=== PATIENT | female | born 1985 | race Caucasian/White ===

== ENCOUNTER 2016-05-20 10:22 | Emergency (ER) | payer OTHER ==
[~2016-05-20] VITALS: Ht 165.1 cm; Wt 85.9 kg
[~2016-05-20 10:22] MED LIST: ADVIL,NUPRIN,M200 MG PO; AMOXICILLIN500 M1 PO; AUGMENTIN875 MG PO; BACTRIM,SEPT1 TABLET PO; CEPHALEXIN500 M1 PO; CIPRO500 MG PO; DOXYCYCLINE HY100 M3 PO; FLEXERIL10 MG PO; FLEXERIL5 MG PO; GARCINIA CAMBO1 EACH PO; HYDROCODON-ACE1 EAC7 PO; IBUPROFEN800 MG PO; KEFLEX500 MG PO; MACROBID100 MG PO; MOTRIN IB200 MG PO; MOTRIN600 MG PO; NAPROSYN-EC500 MG PO; NAPROSYN500 MG PO; NAPROXEN500 MG PO; NO HOME MEDS; NOHOMEMEDS; NORCO 5/3251 TABLET PO; ORAL ANALGESIC9 GM MM; PEN-VEE K,VEET500 MG PO; PEPCID20 MG PO; PREDNISONE10 M1 PO; PYRIDIUM100 MG PO; PYRIDIUM200 MG PO; TRAMADOL HCL50 MG PO; ULTRAM50 MG PO; VICODIN 5-3001 EACH PO; ZOFRAN ODT4 MG PO; ZOFRAN4 MG PO
[2016-05-20] MEDS ORDERED: PEN-VEE K,VEET500 MG PO (13:26)
[2016-05-20 13:39] VITALS: BP 137/91
== END 2016-05-20 13:40 | disposition home or self-care (01) ==
LOC: EME 10:22 → RME 10:22
DX: J02.0 Streptococcal pharyngitis (principal); S63.501A Unspecified sprain of right wrist, initial encounter; W01.0XXA Fall on same level from slipping, tripping and stumbling without subsequent striking against object, initial encounter
CPT/HCPCS: 73110; 87651 90; 99281; 99284

== ENCOUNTER 2016-07-03 05:41 | Emergency (ER) | payer OTHER ==
[~2016-07-03] VITALS: Ht 165.1 cm; Wt 89.7 kg
[2016-07-03 06:28] LABS: HEMATOCRIT 36.9 % (36.0-46.0); MCHC 33.9 G/DL (30.0-36.0); MCV 88.5 FL (83-99); MEAN PLAT.VOLUME 9.6 uM^3 (9.5-12.4); PLATELET COUNT 318 K/uL (156-360); RBC DIS.WIDTH-CV 12.6 % (11.8-14.6); RBC DIS.WIDTH-SD 39.8 % (39-53); RED BLOOD COUNT 4.17 M/uL (3.80-5.20); WHITE BLOOD COUNT 7.4 K/uL (4.1-10.2)
[2016-07-03 06:37] LABS: CHLORIDE 105 mEq/L (99-109); SODIUM 139 mEq/L (136-147)
[2016-07-03 06:39] LABS: GLUCOSE 86 mg/dL (70-99)
[2016-07-03 06:40] LABS: ANION GAP 8 MEQ/L (2-14)
[2016-07-03 06:41] LABS: TOTAL BILIRUBIN 0.3 mg/dL (0.0-1.0)
[2016-07-03 06:42] LABS: ALKALINE PHOSPHATASE 59 IU/L (3-129)
[2016-07-03 06:43] LABS: GFR ESTIMATE (CALCULATED) > 59 mL/min/
[2016-07-03 06:44] LABS: UREA NITROGEN (BUN) 11 mg/dL (9-23)
[2016-07-03 06:46] LABS: LIPASE 22 U/L (1.0-51.0)
[2016-07-03 07:48] LABS: ADD MIUA? YES; BILIRUBIN NEGATIVE; BLOOD SMALL; COLOR YELLOW ((YELLOW)); GLUCOSE (STRIP) NEGATIVE; KETONES NEGATIVE; LEUKOCYTES NEGATIVE; NITRITE NEGATIVE; PROTEIN (STRIP) NEGATIVE; SPECIFIC GRAVITY 1.012 (1.000-1.030); UROBILINOGEN 0.2 MG/DL (0.2-1.0)
[2016-07-03 07:55] LABS: INTERNAL CONTROL VALID? YES
[2016-07-03 08:02] LABS: BACTERIA 1+ /HPF; EPITHELIAL CELLS RARE /HPF; MUCUS NONE SEEN /LPF; RED BLOOD CELLS 0-5 /HPF (0-5); UCUL ADDED? NO; WHITE BLOOD CELLS 0-5 /HPF (0-5)
[2016-07-03] MEDS ORDERED: ZOFRAN ODT4 MG PO (08:18)
[2016-07-03 08:35] VITALS: BP 135/86
== END 2016-07-03 08:45 | disposition home or self-care (01) ==
LOC: EME 05:41
PROVIDERS: Emergency Medicine
DX: K52.9 Noninfective gastroenteritis and colitis, unspecified (principal); J45.909 Unspecified asthma, uncomplicated; Z87.440 Personal history of urinary (tract) infections; F17.200 Nicotine dependence, unspecified, uncomplicated
CPT/HCPCS: 80053; 81003; 83690; 84703; 85027; 99281; 99284

== ENCOUNTER 2016-07-25 12:16 | Emergency (ER) | payer OTHER ==
[~2016-07-25] VITALS: Ht 165.1 cm; Wt 87.3 kg
[2016-07-25] MEDS ORDERED: MOBIC7.5 MG PO (13:20)
[2016-07-25 13:49] VITALS: BP 124/65
== END 2016-07-25 13:51 | disposition home or self-care (01) ==
LOC: EME 12:16
DX: S46.912A Strain of unspecified muscle, fascia and tendon at shoulder and upper arm level, left arm, initial encounter (principal); X50.9XXA Other and unspecified overexertion or strenuous movements or postures, initial encounter; F17.200 Nicotine dependence, unspecified, uncomplicated
CPT/HCPCS: 73030; 99281; 99284

== ENCOUNTER 2016-07-29 10:35 | Emergency (ER) | payer OTHER ==
[~2016-07-29] VITALS: Ht 165.1 cm; Wt 86.9 kg
[~2016-07-29 10:35] MED LIST changes: +MOBIC7.5 MG PO
[2016-07-29 10:42] VITALS: BP 156/101
== END 2016-07-29 12:39 | disposition left against medical advice (07) ==
LOC: EME 10:35
DX: M25.512 Pain in left shoulder (principal); M54.2 Cervicalgia; Z53.21 Procedure and treatment not carried out due to patient leaving prior to being seen by health care provider

== ENCOUNTER 2016-08-08 02:18 | Emergency (ER) | payer OTHER ==
[~2016-08-08] VITALS: Ht 165.1 cm; Wt 86.4 kg
[2016-08-08 05:58] VITALS: BP 145/85
== END 2016-08-08 05:59 | disposition home or self-care (01) ==
LOC: EME 02:18
DX: S06.9X1A Unspecified intracranial injury with loss of consciousness of 30 minutes or less, initial encounter (principal); S16.1XXA Strain of muscle, fascia and tendon at neck level, initial encounter; V49.40XA Driver injured in collision with unspecified motor vehicles in traffic accident, initial encounter; F17.200 Nicotine dependence, unspecified, uncomplicated
CPT/HCPCS: 70450; 72125; 84702; 99281; 99284

== ENCOUNTER 2016-09-04 09:02 | Emergency (ER) | payer OTHER ==
[~2016-09-04] VITALS: Ht 165.1 cm; Wt 88.5 kg
[2016-09-04] MEDS ORDERED: PEPCID20 MG PO (12:22)
[2016-09-04] MEDS ORDERED: BENADRYL25 MG PO (12:22)
[2016-09-04 13:08] VITALS: BP 138/88
== END 2016-09-04 13:09 | disposition home or self-care (01) ==
LOC: EME 09:02
DX: T78.40XA Allergy, unspecified, initial encounter (principal); F17.200 Nicotine dependence, unspecified, uncomplicated; Z87.440 Personal history of urinary (tract) infections; Z88.6 Allergy status to analgesic agent
CPT/HCPCS: 99281; 99284; J1100

== ENCOUNTER 2016-09-20 09:48 | Emergency (ER) | payer OTHER ==
[~2016-09-20] VITALS: Ht 165.1 cm; Wt 86.5 kg
[~2016-09-20 09:48] MED LIST changes: +BENADRYL25 MG PO
[2016-09-20 11:11] LABS: ADD MIUA? YES; BILIRUBIN NEGATIVE; BLOOD LARGE; COLOR YELLOW ((YELLOW)); GLUCOSE (STRIP) NEGATIVE; KETONES NEGATIVE; LEUKOCYTES TRACE; NITRITE NEGATIVE; PROTEIN (STRIP) 100; SPECIFIC GRAVITY 1.021 (1.000-1.030); UROBILINOGEN 0.2 MG/DL (0.2-1.0)
[2016-09-20 11:43] LABS: BACTERIA RARE /HPF; CALCIUM OXALATE CRYSTALS 2+ /HPF; EPITHELIAL CELLS 2+ /HPF; MUCUS TRACE /LPF; RED BLOOD CELLS 40-50 /HPF (0-5)
[2016-09-20] MEDS ORDERED: KEFLEX500 MG PO (12:01)
[2016-09-20] MEDS ORDERED: LIDODERM 5% P1 PATCH TD (12:02)
[2016-09-20 12:23] VITALS: BP 135/94
== END 2016-09-20 12:24 | disposition home or self-care (01) ==
LOC: EME 09:48
DX: R07.81 Pleurodynia (principal); Y09 Assault by unspecified means
CPT/HCPCS: 71101; 81003; 99281; 99284

== ENCOUNTER 2016-11-12 10:09 | Emergency (ER) | payer OTHER ==
[~2016-11-12] VITALS: Ht 165.1 cm; Wt 86.2 kg
[~2016-11-12 10:09] MED LIST changes: +LIDODERM 5% P1 PATCH TD
[2016-11-12 10:23] VITALS: BP 138/81
[2016-11-12] MEDS ORDERED: MOTRIN800 MG PO (11:39)
[2016-11-12] MEDS ORDERED: FLEXERIL10 MG PO (11:39)
== END 2016-11-12 12:02 | disposition home or self-care (01) ==
LOC: EME 10:09
DX: S40.012A Contusion of left shoulder, initial encounter (principal); M62.838 Other muscle spasm; V49.10XA Passenger injured in collision with unspecified motor vehicles in nontraffic accident, initial encounter; Z88.5 Allergy status to narcotic agent
CPT/HCPCS: 73030; 99281; 99283; J1885

== ENCOUNTER 2016-12-05 01:37 | Emergency (ER) | payer SELFPAY ==
[~2016-12-05] VITALS: Ht 165.1 cm; Wt 86.4 kg
[~2016-12-05 01:37] MED LIST changes: +MOTRIN800 MG PO
[2016-12-05 02:02] LABS: ADD MIUA? YES; BILIRUBIN NEGATIVE; BLOOD SMALL; COLOR YELLOW ((YELLOW)); GLUCOSE (STRIP) NEGATIVE; KETONES NEGATIVE; LEUKOCYTES LARGE; NITRITE NEGATIVE; PROTEIN (STRIP) 30; SPECIFIC GRAVITY 1.014 (1.000-1.030); UROBILINOGEN 0.2 MG/DL (0.2-1.0)
[2016-12-05 02:18] LABS: BACTERIA 1+ /HPF; EPITHELIAL CELLS 3+ /HPF; MUCUS TRACE /LPF; RED BLOOD CELLS 0-5 /HPF (0-5); UCUL ADDED? YES
[2016-12-05 02:27] LABS: HEMATOCRIT 39.6 % (36.0-46.0); MCH 29.3 PG (29.0-34.0); MCHC 33.1 G/DL (30.0-36.0); MCV 88.6 FL (83-99); MEAN PLAT.VOLUME 9.6 uM^3 (9.5-12.4); PLATELET COUNT 303 K/uL (156-360); RBC DIS.WIDTH-CV 12.6 % (11.8-14.6); RBC DIS.WIDTH-SD 41.4 % (39-53); RED BLOOD COUNT 4.47 M/uL (3.80-5.20); WHITE BLOOD COUNT 7.2 K/uL (4.1-10.2)
[2016-12-05 02:36] LABS: CHLORIDE 106 mEq/L (99-109); POTASSIUM 4.2 mEq/L (3.7-5.4); SODIUM 138 mEq/L (136-147)
[2016-12-05 02:38] LABS: GLUCOSE 92 mg/dL (70-99)
[2016-12-05 02:40] LABS: ANION GAP 7 MEQ/L (2-14); TOTAL BILIRUBIN 0.8 mg/dL (0.0-1.0)
[2016-12-05 02:42] LABS: ALKALINE PHOSPHATASE 54 IU/L (3-129); GFR ESTIMATE (CALCULATED) > 59 mL/min/
[2016-12-05 02:43] LABS: UREA NITROGEN (BUN) 9 mg/dL (9-23)
[2016-12-05 02:54] LABS: QUANTITATIVE HCG < 4.0 MIU/ML
[2016-12-05] MEDS ORDERED: ZOFRAN ODT4 MG PO (03:06)
[2016-12-05] MEDS ORDERED: INDOCIN50 MG PO (03:06)
[2016-12-05] MEDS ORDERED: MACROBID100 MG PO (03:06)
[2016-12-05 03:45] VITALS: BP 126/81
== END 2016-12-05 03:47 | disposition home or self-care (01) ==
LOC: EME 01:37
DX: N39.0 Urinary tract infection, site not specified (principal); J45.909 Unspecified asthma, uncomplicated; F32.9 Major depressive disorder, single episode, unspecified; F41.9 Anxiety disorder, unspecified; F17.200 Nicotine dependence, unspecified, uncomplicated; Z98.51 Tubal ligation status
CPT/HCPCS: 80053; 81003; 84702; 85027; 87086; 99281; 99284

== ENCOUNTER 2017-02-10 20:09 | Emergency (ER) | payer SELFPAY ==
[~2017-02-10] VITALS: Ht 165.1 cm; Wt 87.2 kg
[~2017-02-10 20:09] MED LIST changes: +INDOCIN50 MG PO
[2017-02-10 20:40] LABS: HEMATOCRIT 43.5 % (36.0-46.0); MCH 29.6 PG (29.0-34.0); MCHC 33.1 G/DL (30.0-36.0); MCV 89.5 FL (83-99); MEAN PLAT.VOLUME 9.9 uM^3 (9.5-12.4); PLATELET COUNT 360 K/uL (156-360); RBC DIS.WIDTH-CV 12.5 % (11.8-14.6); RBC DIS.WIDTH-SD 41.3 % (39-53); RED BLOOD COUNT 4.86 M/uL (3.80-5.20); WHITE BLOOD COUNT 6.8 K/uL (4.1-10.2)
[2017-02-10 20:41] LABS: ADD MIUA? YES; BILIRUBIN NEGATIVE; BLOOD LARGE; COLOR YELLOW ((YELLOW)); GLUCOSE (STRIP) NEGATIVE; KETONES NEGATIVE; LEUKOCYTES MODERATE; NITRITE NEGATIVE; PROTEIN (STRIP) 30; SPECIFIC GRAVITY 1.005 (1.000-1.030); UROBILINOGEN 0.2 MG/DL (0.2-1.0)
[2017-02-10 20:52] LABS: CHLORIDE 102 mEq/L (99-109); POTASSIUM 4.1 mEq/L (3.7-5.4)
[2017-02-10 20:53] LABS: SODIUM 139 mEq/L (136-147)
[2017-02-10 20:55] LABS: GLUCOSE 89 mg/dL (70-99)
[2017-02-10 20:56] LABS: ANION GAP 11 MEQ/L (2-14)
[2017-02-10 20:57] LABS: TOTAL BILIRUBIN 0.3 mg/dL (0.0-1.0)
[2017-02-10 20:58] LABS: ALKALINE PHOSPHATASE 71 IU/L (3-129); GFR ESTIMATE (CALCULATED) > 59 mL/min/
[2017-02-10 21:00] LABS: UREA NITROGEN (BUN) 6 mg/dL (9-23)
[2017-02-10 21:09] LABS: QUANTITATIVE HCG < 4.0 MIU/ML
[2017-02-10 21:23] LABS: RED BLOOD CELLS NONE SEEN /HPF (0-5)
[2017-02-10 21:24] LABS: BACTERIA RARE /HPF; EPITHELIAL CELLS 1+ /HPF; MUCUS NONE SEEN /LPF; UCUL ADDED? NO; WHITE BLOOD CELLS 0-5 /HPF (0-5)
[2017-02-10 21:25] LABS: CASTS NONE SEEN /LPF; CRYSTALS NONE SEEN
[2017-02-10 21:32] LABS: LIPASE 19 U/L (1.0-51.0)
[2017-02-10] MEDS ORDERED: MACROBID100 MG PO (22:15)
[2017-02-10 22:40] VITALS: BP 134/89
== END 2017-02-10 22:40 | disposition home or self-care (01) ==
LOC: EXP 20:09 → EME 20:09 → EXP 22:40
DX: N39.0 Urinary tract infection, site not specified (principal); N93.9 Abnormal uterine and vaginal bleeding, unspecified; J45.909 Unspecified asthma, uncomplicated; F41.9 Anxiety disorder, unspecified; F32.9 Major depressive disorder, single episode, unspecified; Z87.440 Personal history of urinary (tract) infections; F17.200 Nicotine dependence, unspecified, uncomplicated; Z88.8 Allergy status to other drugs, medicaments and biological substances
CPT/HCPCS: 80053; 81003; 83690; 84702; 85027; 99281; 99284

== ENCOUNTER 2017-07-19 15:56 | Emergency (ER) | payer SELFPAY ==
[2017-07-20] MEDS ORDERED: KEFLEX500 MG PO (00:49)
== END 2017-07-19 16:26 | disposition left against medical advice (07) ==
LOC: EME 15:56
DX: R10.9 Unspecified abdominal pain (principal); K62.5 Hemorrhage of anus and rectum; Z53.21 Procedure and treatment not carried out due to patient leaving prior to being seen by health care provider

== ENCOUNTER 2017-07-19 19:21 | Emergency (ER) | payer SELFPAY ==
[~2017-07-19] VITALS: Ht 165.1 cm; Wt 82.5 kg
[2017-07-19 19:58] LABS: APPEARANCE CLOUDY ((CLEAR)); BILIRUBIN NEGATIVE; BLOOD SMALL; COLOR YELLOW ((YELLOW)); GLUCOSE (STRIP) NEGATIVE; KETONES NEGATIVE; LEUKOCYTES SMALL; NITRITE NEGATIVE; PROTEIN (STRIP) 30; SPECIFIC GRAVITY 1.023 (1.000-1.030); UROBILINOGEN 0.2 MG/DL (0.2-1.0)
[2017-07-19 20:04] LABS: HEMATOCRIT 44.9 % (36.0-46.0); HEMOGLOBIN 14.9 G/DL (11.9-15.5); MCH 29.9 PG (29.0-34.0); MCHC 33.2 G/DL (30.0-36.0); MCV 90.2 FL (83-99); PLATELET COUNT 390 K/uL (156-360); RBC DIS.WIDTH-CV 13.2 % (11.8-14.6); RBC DIS.WIDTH-SD 44.2 % (39-53); RED BLOOD COUNT 4.98 M/uL (3.80-5.20); WHITE BLOOD COUNT 11.8 K/uL (4.1-10.2)
[2017-07-19 20:12] LABS: ALBUMIN 4.5 g/dL (3.2-4.8); CHLORIDE 104 mEq/L (99-109); POTASSIUM 4.1 mEq/L (3.7-5.4); SODIUM 141 mEq/L (136-147)
[2017-07-19 20:14] LABS: GLUCOSE 90 mg/dL (70-99); TOTAL PROTEIN 7.8 g/dL (6.4-8.3)
[2017-07-19 20:16] LABS: TOTAL BILIRUBIN 0.5 mg/dL (0.0-1.0)
[2017-07-19 20:18] LABS: ALKALINE PHOSPHATASE 68 IU/L (3-129); CREATININE 0.7 mg/dL (0.6-1.3); GFR ESTIMATE (CALCULATED) > 59 mL/min/
[2017-07-19 20:19] LABS: UREA NITROGEN (BUN) 12 mg/dL (9-23)
[2017-07-19 20:20] LABS: AST (GOT) 24 IU/L (2-34)
[2017-07-19 20:21] LABS: ALT (GPT) 25 IU/L (3-49)
[2017-07-19 20:38] LABS: BACTERIA 2+ /HPF; EPITHELIAL CELLS 2+ /HPF; MUCUS NONE SEEN /LPF; RED BLOOD CELLS 0-5 /HPF (0-5); UCUL ADDED? YES
[2017-07-20] MEDS ORDERED: KEFLEX500 MG PO (00:49)
[2017-07-20 01:16] VITALS: BP 155/89
== END 2017-07-20 01:17 | disposition home or self-care (01) ==
LOC: EME 19:21
DX: N39.0 Urinary tract infection, site not specified (principal); R31.9 Hematuria, unspecified; R11.2 Nausea with vomiting, unspecified; R19.7 Diarrhea, unspecified; Z91.81 History of falling; F17.200 Nicotine dependence, unspecified, uncomplicated
CPT/HCPCS: 74176; 80053; 81003; 85027; 86850; 86900; 86901; 87086; 99281; 99284; J1885